=== PATIENT | male | born 1990 | race Caucasian/White ===

== ENCOUNTER 2019-12-16 13:29 | Emergency (ER) | payer OTHER, SELFPAY ==
[2019-12-16 13:41] VITALS: BP 127/76; PULSE 67; RESP 16; TEMP 36.4; O2SAT 99
--- NOTE | 2019-12-16 13:57 | ED.URI ---
HPI - URI/Sore Throat General Chief Complaint: Upper Respiratory Infection Stated Complaint: Cold/Flu like symptoms History of Present Illness HPI Narrative: This is a 29-year-old male comes in complaining of feeling fatigued cough nasal drainage sinus pressure states is been going on since Monday was around 1 of his coworkers who was positive for influenza. Symptoms started to go away but last night got worse his body started aching and today went to work and then his body aches started hurting so he came in to be evaluated. Denies any dizziness mild nausea at times Related Data Allergies Allergy/AdvReac Type Severity Reaction Status Date / Time Penicillins Allergy Hives Verified 12/16/19 14:01 Review of Systems Review of Systems: Narrative: CONSTITUTIONAL: report fever, chills, or sweats. EYES: Denies visual changes, redness, or discharge. ENT: report rhinorrhea, congestion, sore throat, or otalgia. CARDIOVASCULAR:Denies chest pain, palpitations, or edema. RESPIRATORY: report cough or dyspnea. GASTROINTESTINAL: Denies abdominal pain, nausea, vomiting, or diarrhea. GENITOURINARY: Denies dysuria or hematuria. SKIN:[Denies rash or itching. MUSCULOSKELETAL:Denies back pain, joint pain, or myalgia. NEUROLOGIC: Denies headache, numbness, or weakness. PSYCHIATRIC:Denies anxiety or depression PMFSH Comments At time as signature, I have reviewed and agree with nursing past medical, social, surgical and family history. Please see nursing chart for further information. There is no relevant family history pertinent to the presenting complaint. Exam Narrative: Exam Narrative: GENERAL:Well-appearing, well-nourished, and in no acute distress.malaise , fatigue HEAD:Normocephalic, atraumatic. EYES: PERRLA and EOMI. ENT: Nares clear, no rhinorrhea or epistaxis. Mucous membranes moist.pharygeal erythema enlarge tonsil NECK: Supple. CHEST: Clear to auscultation. No respiratory distress. HEART: Regular rate and rhythm. No murmur heard. Normal peripheral pulses. ABDOMEN: Soft, nontender, nondistended, normal active bowel sounds. EXTREMITIES: Normal range of motion. No edema. SKIN: Warm, dry, no rash. NEURO: No focal deficits. Alert and oriented x3. Course Vital Signs Vital signs: Vital Signs Temperature 97.6 F 12/16/19 13:41 Pulse Rate 67 12/16/19 13:41 Respiratory Rate 16 12/16/19 13:41 Blood Pressure 127/76 12/16/19 13:41 Pulse Oximetry 99 12/16/19 13:41 Temperature 97.6 F 12/16/19 13:41 Pulse Rate 67 12/16/19 13:41 Respiratory Rate 16 12/16/19 13:41 Blood Pressure 127/76 12/16/19 13:41 Pulse Oximetry 99 12/16/19 13:41 Discharge Plan Discharge Clinical Impression: Influenza-like illness Patient Disposition: Home, Self-Care Condition: Stable Instructions: Antibiotic Form, Influenza (ED) Prescriptions: New ondansetron 4 mg tablet,disintegrating 4 mg PO Q8H PRN (Reason: nausea and vomiting) Qty: 10 RF: 0 loratadine [Claritin] 10 mg tablet 10 mg PO DAILY PRN (Reason: allergy symptoms) Qty: 30 RF: 0 ibuprofen 600 mg tablet 600 mg PO Q6H PRN (Reason: pain) Qty: 30 RF: 0 Follow-up/Referrals: UNKNOWN,DOCTOR [Primary Care Provider] - Stand Alone Forms: Work/School Release IP Time of Disposition: 14:13
== END 2019-12-16 14:20 | disposition home or self-care (01) ==
PROVIDERS: Emergency Provider Nurse Practitioner Family
DX: R05 Cough (principal); J02.9 Acute pharyngitis, unspecified; J34.89 Other specified disorders of nose and nasal sinuses; R50.9 Fever, unspecified
CPT/HCPCS: 87081; 87804; 87880; 99203; G0463